=== PATIENT | female | born 1970 | race Caucasian/White ===

== ENCOUNTER → 2020-05-12 | Outpatient (CLI) | payer MEDICAID, OTHER, SELFPAY ==
[~2020-05-12] MED LIST: ELIQ5TAB PO; FERR325T3 PO; LASI20TA3 PO; VITA-158 PO
--- NOTE | 2020-07-04 13:39 | REP ---
LEFT LOWER EXTREMITY DOPPLER ULTRASOUND: HISTORY: Left lower extremity pain. TECHNIQUE: Real time, davis scale and color Doppler evaluation using linear high frequency transducer. FINDINGS: There is partial thrombus extending from the common femoral vein to the popliteal vein along with occlusive thrombus extending into the greater saphenous vein. IMPRESSION: Findings consistent with acute deep venous thrombosis. MTDD
== END ==
LOC: M RAD 12:36
PROVIDERS: ATTEND Physician Assistant Medical
DX: I82.412 Acute embolism and thrombosis of left femoral vein (principal); I82.433 Acute embolism and thrombosis of popliteal vein, bilateral

== ENCOUNTER → 2020-05-12 | Emergency (ER) | payer MEDICAID, OTHER, SELFPAY ==
[~2020-05-12] MED LIST changes: +APIXABAN 5 MG TAB (ELIQUIS) ONE
[2020-06-15 14:08] LABS: INR 1.07; PARTIAL THROMBOPLASTIN TIME 23.7 SECONDS (25.0-38.4); PROTHROMBIN TIME 14.1 SECONDS (11.8-14.0)
[2020-06-23 10:45] LABS: DRVV CONFIRM 39.8 SEC; DRVV SCREEN 46.7 SEC; LUPUS CONFIRM RATIO 1.1; NORMALIZED RATIO 1.09 (0.00-1.20); PTT LUPUS TYPE ANTICOAG SCREEN 1.2 (0-1.2)
[2020-07-22 06:51] LABS: CARDIOLIPIN IGG ANTIBODY SEE SEPARATE REPORT; CARDIOLIPIN IGM ANTIBODY SEE SEPARATE REPORT
[2020-07-22 06:52] LABS: ANTI THROMBIN 3 ANTIGEN IMMUNO See Separate Report % NORMAL; ANTI THROMBIN 3 FUNCT ACTIVITY See Separate Report % NORMAL; CARDIOLIPIN IGA ANTIBODY SEE SEPARATE REPORT; PROTEIN C FUNCTIONAL ACTIVITY SEE SEPARATE REPORT %; PROTEIN S FUNCTIONAL ACTIVITY SEE SEPARATE REPORT %
[2020-07-22 06:53] LABS: FACTOR II PROTHROMBIN GENE AN SEE SEPARATE REPORT; FACTOR V LEIDEN FOR MEDINET See Separate Report
== END | disposition home or self-care (01) ==
LOC: M ED 14:17
DX: I80.3 Phlebitis and thrombophlebitis of lower extremities, unspecified (principal); F17.210 Nicotine dependence, cigarettes, uncomplicated

== ENCOUNTER → 2020-07-24 | Outpatient (REF) | payer MEDICAID, OTHER ==
[~2020-07-24] MED LIST changes: -APIXABAN 5 MG TAB (ELIQUIS) ONE
[2020-07-24 13:03] LABS: BASO # 0.1 10^3/uL (0.0-0.2); EOS # 0.1 10^3/uL (0.0-0.5); EOS % 1.4 % (0.0-3.0); LYMPH # 1.6 10^3/uL (1.5-5.0); LYMPH % 32.9 % (24.0-44.0); MEAN CORPUSCULAR HEMOGLOBIN 16.6 pg (27.0-33.0); MEAN CORPUSCULAR HGB CONC 26.6 g/dl (32.0-36.5); MEAN CORPUSCULAR VOLUME 62.5 fl (80.0-96.0); MONO # 0.2 10^3/uL (0.0-0.8); MONO % 4.5 % (0.0-5.0); NEUTROPHILS # 2.9 10^3/uL (1.5-8.5); NEUTROPHILS % 59.8 % (36.0-66.0); PLATELET COUNT, AUTOMATED 160 10^3/uL (150-450); RED BLOOD COUNT 3.01 10^6/uL (4.00-5.40); WHITE BLOOD COUNT 4.9 10^3/uL (4.0-10.0)
[2020-07-24 13:33] LABS: ALBUMIN 3.4 GM/DL (3.2-5.2); ALT/SGPT 45 U/L (12-78); BILIRUBIN,TOTAL 0.3 MG/DL (0.2-1.0); BLOOD UREA NITROGEN 8 MG/DL (7-18); CALCIUM LEVEL 8.5 MG/DL (8.5-10.1); CARBON DIOXIDE LEVEL 26 MEQ/L (21-32); CHLORIDE LEVEL 106 MEQ/L (98-107); CHOLESTEROL LEVEL 101 MG/DL (<200); CHOLESTEROL RISK RATIO 3.607 (<5); CREATININE FOR GFR 0.77 MG/DL (0.55-1.30); FREE T4 1.12 NG/DL (0.76-1.46); GLOMERULAR FILTRATION RATE > 60.0 (>51); GLUCOSE, FASTING 88 MG/DL (70-100); HDL CHOLESTEROL 28 MG/DL (>40); LDL CHOLESTEROL 61 MG/DL (<100); NON-HDL-C 73 MG/DL; POTASSIUM SERUM 3.8 MEQ/L (3.5-5.1); SODIUM LEVEL 137 MEQ/L (136-145); TOTAL PROTEIN 7.3 GM/DL (6.4-8.2); TRIGLYCERIDES LEVEL 61 MG/DL (<150)
[2020-07-24 13:34] LABS: HEMATOCRIT 18.8 % (36.0-47.0)
== END ==
LOC: M LAB REF 12:24
PROVIDERS: ATTEND Physician Assistant
DX: Z72.0 Tobacco use (principal); E03.0 Congenital hypothyroidism with diffuse goiter; I82.402 Acute embolism and thrombosis of unspecified deep veins of left lower extremity; Z68.39 Body mass index [BMI] 39.0-39.9, adult; E66.09 Other obesity due to excess calories

== ENCOUNTER 2020-07-25 15:53 | Inpatient (IN) | payer MEDICAID, OTHER ==
[2020-07-25] VITALS (8 sets, daily range): BP systolic 149–165; BP diastolic 66–83
[~2020-07-25] VITALS: Ht 172.7 cm; Wt 104.3 kg
[~2020-07-25 15:53] MED LIST changes: -ELIQ5TAB PO; -FERR325T3 PO; -LASI20TA3 PO; -VITA-158 PO; +medroxyPROGESTERone 5MG TABLET PO SCH
[2020-07-25] MEDS ORDERED: ELIQ5TAB PO (16:13)
[2020-07-25 16:29] LABS: BASO % 0.4 % (0.0-1.0); EOS # 0.1 10^3/uL (0.0-0.5); EOS % 1.6 % (0.0-3.0); LYMPH # 1.5 10^3/uL (1.5-5.0); LYMPH % 30.5 % (24.0-44.0); MEAN CORPUSCULAR HEMOGLOBIN 16.5 pg (27.0-33.0); MEAN CORPUSCULAR HGB CONC 26.6 g/dl (32.0-36.5); MEAN CORPUSCULAR VOLUME 62.1 fl (80.0-96.0); MONO # 0.2 10^3/uL (0.0-0.8); MONO % 3.9 % (0.0-5.0); NEUTROPHILS # 3.1 10^3/uL (1.5-8.5); PLATELET COUNT, AUTOMATED 164 10^3/uL (150-450); RED BLOOD COUNT 2.85 10^6/uL (4.00-5.40); WHITE BLOOD COUNT 4.9 10^3/uL (4.0-10.0)
[2020-07-25 16:37] LABS: HEMATOCRIT 17.7 % (36.0-47.0); HEMOGLOBIN 4.7 g/dl (12.0-15.5)
[2020-07-25 16:42] LABS: INR 1.13; PROTHROMBIN TIME 14.8 SECONDS (12.5-14.3)
[2020-07-25 16:43] LABS: PARTIAL THROMBOPLASTIN TIME 27.2 SECONDS (24.2-38.5)
[2020-07-25 16:49] LABS: BLOOD UREA NITROGEN 9 MG/DL (7-18); CALCIUM LEVEL 8.2 MG/DL (8.5-10.1); CARBON DIOXIDE LEVEL 25 MEQ/L (21-32); CHLORIDE LEVEL 105 MEQ/L (98-107); CREATININE FOR GFR 0.81 MG/DL (0.55-1.30); GLOMERULAR FILTRATION RATE > 60.0 (>51); GLUCOSE, FASTING 97 MG/DL (70-100); POTASSIUM SERUM 3.3 MEQ/L (3.5-5.1); SODIUM LEVEL 138 MEQ/L (136-145)
--- NOTE | 2020-07-25 17:13 | HPEPDOC ---
[facility] Medical History & Physical Date of Admission Jul 25, 2020 Date of Service: Jul 25, 2020 Attending Physician: Cady Silver MD History and Physical CHIEF COMPLAINT: Abnormal labs HISTORY OF PRESENT ILLNESS: Patient is a 49-year-old female with past medical history of abnormal uterine bleeding on Eliquis, tobacco use, obesity, history of DVT on eliquis who presented to [facility] after being told by her physician that she had abnormal labs. The patient was diagnosed with a left lower extremity DVT at the end of April 2020 and started on Hailey Timothy twice a day. Her next menstrual cycle, the patient bled an excessive amount and it lasted for approximately - 11/07 weeks. She followed up with her primary care provider who continued with the Eliquis but at a decreased dose than before. This month when she had her menstrual cycle her period was very heavy and lasted approximately one week, but overall less heavy then prior menstrual cycle. She went in for labs family and was found to have abnormal labs so she was sent here for further evaluation. The patient states to have some increased shortness of breath but does not think it's far from her normal with her history of smoking. She also admits to intermittent cough which she labels as a smoker's cough. She denies chest pain, lightheadedness, dizziness, increased lethargy, rectal bleeding, nausea, vomiting, decreased appetite. She denies having history of anemia in the past but admits that there is a strong family history of thalassemia in both her sister and grandmother. In the emergency room H&H was 4.7/17.7, MCV was low in the 60s. Potassium was low at 3.3. Blood pressure was elevated with systolic 180s. On examination the patient had pale conjunctiva, +2 pitting edema in the bilateral lower extremitie s. Left lower extremity where prior DVT was diagnosed was slightly more swollen than the right. The case was discussed with Dr. Caraballo (gynecology on-call). Due to the patient not yet being menopausal, she states abnormal or heavy bleeding with menses can be completely normal. But if the patient is having continued bleeding after her menses with severe anemia, treating with progesterone or control pills could be an option. There is an increased risk of clots with both options presented, however. I presented her options to the patient and the patient would like to not treat with progesterone or control pills but only. The Hailey Timothy right now while receiving transfusions. She does not have an outpatient mate chief to follow with but would like to follow-up with Dr. Caraballo after discharge. The patient was ultimately admitted admitted under hospitalist services for acute blood loss anemia likely secondary to vaginal bleeding while on Eliquis. REVIEW OF SYSTEMS: CONSTITUTIONAL: Denies lack of energy, unexplained weight gain or weight loss, loss of appetite, fever, night sweats EYES: Denies eye drainage, eye pain, visual changes, dry/irritated eye EARS, NOSE, MOUTH, THROAT: Denies difficulty hearing, ringing in ears, mouth sores, loose teeth, sore throat, facial numbness or pain NECK: Denies swollen glands CARDIOVASCULAR: Denies irregular heartbeat, racing heart, chest pains, swelling of feet or legs, pain in legs with walking RESPIRATORY: Denies night sweats, wheezing, sputum production, oxygen at home, coughing up blood, cough lasting > 1 month GASTROINTESTINAL: Denies abdominal pain, constipation, bloody stool, diarrhea, heartburn, nausea, vomiting GENITOURINARY: Denies painful urination, bloody urine, frequent urination, urgency, leaking urine, impotence MUSCULOSKELETAL: Denies joint pain, muscle pain, leg swelling INTEGUMENTARY: Denies rash, itching, new skin lesion, change in existing skin lesion, hair loss or increase, breast changes. NEUROLOGICAL: Denies headaches, dizziness, difficulty walking, numbness or tingling PSYCHIATRIC: Denies depression, anxiety, recurrent bad thoughts, mood swings, hallucinations PAST MEDICAL HISTORY: 1. Tobacco use 2. Obesity 3. DVT LLE (diagnosed 04/2020) on Eliquis 4. Lower ext edema b/l 5. Abnormal vaginal bleeding on Eliquis PAST SURGICAL HISTORY: 1. pilodinal cyst removal 2. Ovarian cyst removal FAMILY HISTORY: Father: Healthy, alive Mother: Breast cancer, alive Siblings: sister, thalassemia Grandmother: thalassemia SOCIAL HISTORY: Smoker 2 packs per day for the past 30 years. Drinks alcohol socially, denies illicit drug use. Lives alone locally. Her primary care provider is Lissa Arana. She is a full code. ALLERGIES: Please see below. HOME MEDICATIONS: Please see below. PHYSICAL EXAMINATION: VS: Please see below CONSTITUTIONAL: No acute distress, resting comfortably, AAO x 3 EYES: PERRLA, EOM intact, pale conjunctiva HENT, MOUTH: Normocephalic, atraumatic, moist mucous membranes, NECK: SUPPLE, no JVD, no lymphadenopathy, no carotid bruit CV: Regular rate and rhythm, S1S2 normal, no murmurs/rubs/gallops RESPIRATORY: Clear to auscultation bilaterally, no rales/rhonchi/wheezes GI: BS positive in 4 quadrants, soft, nontender, nondistended, no rebound or guarding, no organomegaly : Deferred MUSCULOSKELETAL: Normal ROM. No cyanosis, clubbing, swelling, joint deformity, + 2 pitting lower extremity edema with L>R INTEGUMENTARY: Intact, no rashes, no lesions, no erythema NEUROLOGIC: Cranial Nerves II-XII are intact, no focal deficits PSYCHIATRIC: Mood and affect are normal LABORATORY DATA: Please see below IMAGING: None ASSESSMENT: 49-year-old female with past medical history of abnormal uterine bleeding on Eliquis, tobacco use, obesity, history of DVT on eliquis admitted for further treatment of acute blood loss anemia likely secondary to vaginal bleeding while on Eliquis. PLAN: Acute blood loss anemia likely 2/2 to vaginal bleeding while on Eliquis. Cannot also r/o chronic cause of underlying anemia. -H/H 4.7, MCV low (hypochromic, microcytic cause likely- iron deficiency, sideroblastic anemia, thalassemia) -F/u iron, TIBC, ferritin. -Patient would benefit from o/p w/u for thalassemia due to strong family history if anemia has been chronic longer than April 2020 -Discussed case with Dr. Caraballo (gynecology) who gave some options for bleeding including progesterone or control pills but risk for clots is present. Wi th already existing DVT, high risk. Discussed with patient who would like to hold off on adding these meds and only stop eliquis for now. Dr. White's recommended f/u with mate chief after d/c. -Transfusing 3 units PRBC today, f/u post transfusion H/H after 2nd unit and 3rd unit. Will give dose of lasix after 2nd unit. -Goal Hgb >8-9. Hypokalemia, acute -K 3.3 -Supplementing 40 mEq now -F/u daily labs HTN -BP in ER 160-180's systolic -No prior hx but patient is fluid overloaded with + 2-3 pitting edema in lower ext -Will give daily lasix dosing and may need to be discharged with it. LLE DVT -Smoker, no prior hx of DVT, unknown if other risk factors when diagnosed in 04/2020. -Stopping eliquis for now -Will need to f/u with PCP after discharge to discuss when/if to resume -Patient knows if off eliquis risk of clot formation or increasing size of existing clot exists Bilateral lower ext swelling -L>R with existing DVT; however, +2 pitting edema. -No incr JVD, shortness of breath, or abnormal cough. -Would recommend o/p echocardiogram to r/o possible RHF -Could be lymphedema also -Teds/scd only for Right lower ext due to dvt in left Tobacco use -nicotine patch DVT px. -SCD for right leg only. Avoiding AC due to vaginal bleeding DISPOSITION: Admitted as observation status. Plan is discharge home when medically improved. Will need Dr. White's office number to f/u after discharge. Vital Signs Vital Signs Date Time Temp Pulse Resp B/P (MAP) Pulse Ox O2 Delivery O2 Flow Rate FiO2 07/25/20 16:05 07/25/20 15:54 98.4 93 18 100 Room Air Laboratory Data Labs 24H Laboratory Tests 2 07/25/20 16:19: Immature Granulocyte % (Auto) 0.6, Neutrophils (%) (Auto) 63.0, Lymphocytes (%) (Auto) 30.5, Monocytes (%) (Auto) 3.9, Eosinophils (%) (Auto) 1.6, Basophils (%) (Auto) 0.4, Neutrophils # (Auto) 3.1, Lymphocytes # (Auto) 1.5, Monocytes # (Au to) 0.2, Eosinophils # (Auto) 0.1, Basophils # (Auto) 0.0, Nucleated Red Blood Cells % (auto) 0.0, Prothrombin Time 14.8H, Prothromb Time International Ratio 1.13, Activated Partial Thromboplast Time 27.2, Anion Gap 8, Glomerular Filtration Rate > 60.0, Calcium Level 8.2L CBC/BMP Laboratory Tests 07/25/20 16:19 Home Medications Scheduled Apixaban (Eliquis) 5 Mg Tablet, 5 MG PO BID Allergies Coded Allergies: No Known Allergies (Verified , 01/23/10) A-FIB/CHADSVASC A-FIB History Current/History of A-Fib/PAF?: No Current PO Anticoag Therapy: No Age/Risk Factor Scoring CHADSVASC: CHADSVASC Response (Comments) Value Age Risk Factor Age < 65 years old 0 Gender Risk Factor Female 1 Hx of CHF No 0 Hx of HTN Yes 1 Hx of Stroke/TIA/or VTE No 0 Hx of Diabetes No 0 Hx of Vascular Disease No 0 Total 2 Treatment Treatment ordered: NONE Reason Anticoagulant not given: Current bleeding Cady Silver MD Jul 25, 2020 17:13
[2020-07-25] MEDS ORDERED: ACETAMINOPHEN TAB 650MG DOSE (2X325MG) PO PRN (17:15)
[2020-07-25] MEDS ORDERED: FUROSEMIDE 40MG/4ML VIAL (J1940) IV ONE (18:30)
[2020-07-25 18:41] LABS: FERRITIN 3 NG/ML (8-252); IRON (FE) 11 UG/DL (50-170); PERCENT SATURATION 1.8 % (13.2-45.0); TOTAL IRON BINDING CAPACITY 619 UG/DL (250-450)
[2020-07-25] MEDS ORDERED: POTASSIUM CHLORIDE 10 MEQ SR TABLET PO ONE (19:00)
[2020-07-26] VITALS (12 sets, daily range): BP systolic 133–166; BP diastolic 64–77
[2020-07-26 00:44] LABS: HEMATOCRIT 25.1 % (36.0-47.0); MEAN CORPUSCULAR HEMOGLOBIN 19.3 pg (27.0-33.0); MEAN CORPUSCULAR HGB CONC 28.7 g/dl (32.0-36.5); MEAN CORPUSCULAR VOLUME 67.3 fl (80.0-96.0); PLATELET COUNT, AUTOMATED 169 10^3/uL (150-450); RED BLOOD COUNT 3.73 10^6/uL (4.00-5.40)
[2020-07-26 00:47] LABS: HEMOGLOBIN 7.2 g/dl (12.0-15.5)
[2020-07-26 03:55] LABS: HEMATOCRIT 26.7 % (36.0-47.0); HEMOGLOBIN 7.8 g/dl (12.0-15.5); MEAN CORPUSCULAR HEMOGLOBIN 19.7 pg (27.0-33.0); MEAN CORPUSCULAR HGB CONC 29.2 g/dl (32.0-36.5); MEAN CORPUSCULAR VOLUME 67.4 fl (80.0-96.0); PLATELET COUNT, AUTOMATED 160 10^3/uL (150-450); RED BLOOD COUNT 3.96 10^6/uL (4.00-5.40); WHITE BLOOD COUNT 6.3 10^3/uL (4.0-10.0)
[2020-07-26 05:46] LABS: HEMATOCRIT 25.6 % (36.0-47.0); HEMOGLOBIN 7.4 g/dl (12.0-15.5); MEAN CORPUSCULAR HEMOGLOBIN 19.5 pg (27.0-33.0); MEAN CORPUSCULAR HGB CONC 28.9 g/dl (32.0-36.5); MEAN CORPUSCULAR VOLUME 67.5 fl (80.0-96.0); PLATELET COUNT, AUTOMATED 154 10^3/uL (150-450); RED BLOOD COUNT 3.79 10^6/uL (4.00-5.40); WHITE BLOOD COUNT 5.8 10^3/uL (4.0-10.0)
[2020-07-26 06:11] LABS: ALBUMIN 3.4 GM/DL (3.2-5.2); ALT/SGPT 48 U/L (12-78); BILIRUBIN,TOTAL 1.3 MG/DL (0.2-1.0); BLOOD UREA NITROGEN 6 MG/DL (7-18); CALCIUM LEVEL 8.4 MG/DL (8.5-10.1); CARBON DIOXIDE LEVEL 26 MEQ/L (21-32); CHLORIDE LEVEL 106 MEQ/L (98-107); CREATININE FOR GFR 0.74 MG/DL (0.55-1.30); GLOMERULAR FILTRATION RATE > 60.0 (>51); GLUCOSE, FASTING 90 MG/DL (70-100); POTASSIUM SERUM 3.6 MEQ/L (3.5-5.1); SODIUM LEVEL 138 MEQ/L (136-145); TOTAL PROTEIN 7.4 GM/DL (6.4-8.2)
[2020-07-26] MEDS ORDERED: MIRALAX *UNIT DOSE* 17GM PACKET PO PRN (08:45)
[2020-07-26] MEDS ORDERED: NICOTINE 14 MG/24 HR TRANSDERMAL TD SCH (09:00)
[2020-07-26] MEDS ORDERED: FUROSEMIDE 40MG/4ML VIAL (J1940) IV SCH (09:00)
[2020-07-26] MEDS ORDERED: ASCORBIC ACID 500 MG TAB PO SCH (09:00)
[2020-07-26] MEDS ORDERED: FERROUS SULFATE 325MG TAB PO SCH (09:00)
[2020-07-26 13:33] LABS: HEMOGLOBIN 9.5 g/dl (12.0-15.5)
[2020-07-26] MEDS ORDERED: LASI20TA3 PO (17:37)
[2020-07-26] MEDS ORDERED: VITA-158 PO (17:47)
[2020-07-26] MEDS ORDERED: FERR325T3 PO (17:47)
--- NOTE | 2020-07-26 18:00 | DS.PDOC ---
Discharge Summary General Date of Admission Jul 25, 2020 at 17:08 Date of Discharge 07/26/20 Attending Physician: Cady Silver MD Discharge Summary HISTORY OF PRESENT ILLNESS: Patient is a 49-year-old female with past medical history of abnormal uterine bleeding on Eliquis, tobacco use, obesity, history of DVT on eliquis who presented to [facility] after being told by her physician that she had abnormal labs. The patient was diagnosed with a left lower extremity DVT at the end of April 2020 and started on Hailey Timothy twice a day. Her next menstrual cycle, the patient bled an excessive amount and it lasted for approximately - 11/07 weeks. She followed up with her primary care provider who continued with the Eliquis but at a decreased dose than before. This month when she had her menstrual cycle her period was very heavy and lasted approximately one week, but overall less heavy then prior menstrual cycle. She went in for labs family and was found to have abnormal labs so she was sent here for further evaluation. The patient states to have some increased shortness of breath but does not think it's far from her normal with her history of smoking. She also admits to intermittent cough which she labels as a smoker's cough. She denies chest pain, lightheadedness, dizziness, increased lethargy, rectal bleeding, nausea, vomiting, decreased appetite. She denies having history of anemia in the past but admits that there is a strong family history of thalassemia in both her sister and grandmother. In the emergency room H&H was 4.7/17.7, MCV was low in the 60s. Potassium was low at 3.3. Blood pressure was elevated with systolic 180s. On examination the patient had pale conjunctiva, +2 pitting edema in the bilateral lower extremities. Left lower extremity where prior DVT was diagnosed was slightly more swollen than the right. The case was discussed with Dr. Caraballo (gynecology on-call). Due to the patient not yet being menopausal, she states abnormal or heavy bleeding with menses can be completely normal. But if the patient is having continued bleeding after her menses with severe anemia, treating with progesterone or control pills could be an option. There is an increased risk of clots with both options presented, however. I presented her options to the patient and the patient would like to not treat with progesterone or control pills. She does not have an outpatient [employer] special [employer] to follow with but would like to follow-up with Dr. Caraballo after discharge. The patient was ultimately admitted admitted under hospitalist services for acute blood loss anemia likely secondary to vaginal bleeding while on Eliquis. HOSPITAL COURSE: Acute on chronic blood loss anemia was found to be likely 2/2 to severe iron deficiency anemia, vaginal bleeding while on Eliquis. Cannot also r/o chronic cause of underlying anemia (i.e. thalassemia). H/H was 4.7/17 on admission but s/p 4 units PRBC --> 9.5/32. Iron was found to be low at 11, TIBC high. Discussed case with Dr. Caraballo (gynecology) who gave some options for bleeding including progesterone or control pills but risk for clots is present. With already existing DVT, she is high risk. We addressed this again with patient who would like to hold off on adding progesterone or control pills at discharge and only stop eliquis for now. She was started on ferrous sulfate BID, vitamin C BID. Would benefit from iron infusions as o/p (i.e. venofer). Hypokalemia resolved with supplementation. She had persistently high BP, likely this is her at baseline. She received 40 mg IV lasix after the 3rd unit of blood which helped with gentle diuresis. She will go home with oral lasix low dose to help with both lower ext edema and HTN. With hx of DVT, patient will need close f/u with PCP to discuss when/if she can resume her anticoagulation. If she cannot, what are her other options that need to be discussed. I am recommending an o/p echocardiogram to further assess lower ext edema. On 07/26/20 patient was discharged home in improved condition. She is advised to take all discharge instructions to follow up appointment. At discharge, patient admits to feeling like she has "more energy". She didn't realize that her feeling run down was her low blood levels-she attributed it to her stress at home. She denies chest pain,n/v/d, fevers, chills, lightheadedness, dizziness. REVIEW OF SYSTEMS: Neg except mentioned above PAST MEDICAL HISTORY: 1. Tobacco use 2. Obesity 3. DVT LLE (diagnosed 04/2020) on Eliquis 4. Lower ext edema b/l 5. Abnormal vaginal bleeding on Eliquis PAST SURGICAL HISTORY: 1. pilodinal cyst removal 2. Ovarian cyst removal FAMILY HISTORY: Father: Healthy, alive Mother: Breast cancer, alive Siblings: sister, thalassemia Grandmother: thalassemia SOCIAL HISTORY: Smoker 2 packs per day for the past 30 years. Drinks alcohol socially, denies illicit drug use. Lives alone locally. Her primary care provider is Lissa Arana. She is a full code. ALLERGIES: Please see below. HOME MEDICATIONS: Please see below. PHYSICAL EXAMINATION: VS: Please see below CONSTITUTIONAL: No acute distress, resting comfortably, AAO x 3 EYES: PERRLA, EOM intact, pale conjunctiva HENT, MOUTH: Normocephalic, atraumatic, moist mucous membranes, NECK: SUPPLE, no JVD, no lymphadenopathy, no carotid bruit CV: Regular rate and rhythm, S1S2 normal, no murmurs/rubs/gallops RESPIRATORY: Clear to auscultation bilaterally, no rales/rhonchi/wheezes GI: BS positive in 4 quadrants, soft, nontender, nondistended, no rebound or guarding, no organomegaly : Deferred MUSCULOSKELETAL: Normal ROM. No cyanosis, clubbing, swelling, joint deformity, + 2 pitting lower extremity edema with L>R INTEGUMENTARY: Intact, no rashes, no lesions, no erythema NEUROLOGIC: Cranial Nerves II-XII are intact, no focal deficits PSYCHIATRIC: Mood and affect are normal LABORATORY DATA: Please see below IMAGING: None ASSESSMENT: 49-year-old female with past medical history of abnormal uterine bleeding on Eliquis, tobacco use, obesity, history of DVT on eliquis admitted for further treatment of acute blood loss anemia likely secondary to severe iron deficiency from vaginal bleeding while on Eliquis. PLAN: Acute on chronic blood loss anemia likely 2/2 to severe iron deficiency anemia, vaginal bleeding while on Eliquis. Cannot also r/o chronic cause of underlying anemia (i.e. thalassemia). -H/H 4.7/17 on admission. S/p 4 units PRBC --> 9.5/32. -Iron low at 11, TIBC high -Patient would benefit from o/p w/u for thalassemia due to strong family history if anemia has been chronic longer than April 2020 -Discussed case with Dr. Caraballo (gynecology) who gave some options for bleeding including progesterone or control pills but risk for clots is present. With already existing DVT, high risk. Discussed with patient who would like to hold off on adding these meds and only stop eliquis for now. Dr. White's recommended f/u with [employer] special education teacher after d/c. Patient given o/p clinic number to call and set up appointment. -If bleeding continues, patient is advised to seek medical attention to address -Starting ferrous sulfate BID, vitamin C BID. Would benefit from iron infusions as o/p (i.e. venofer) Hypokalemia, acute- resolve HTN -BP 140-160's systolic -S/p 40 mg IV lasix after two units PRBC -Likely unknown baseline HTN -Discharged on low dose lasix 20 mg PO daily LLE DVT -Smoker, obesity, sedentary, but no prior hx of DVT, unknown if other risk factors when diagnosed in 04/2020. -Stopping eliquis for now per patient's request -Will need to f/u with PCP after discharge to discuss when/if to resume -Patient knows if off eliquis risk of clot formation or increasing size of existing clot exists Bilateral lower ext swelling -L>R with existing DVT; however, +2 pitting edema. -No incr JVD, shortness of breath, or abnormal cough. -Would recommend o/p echocardiogram to r/o possible RHF -Could be lymphedema also -C/w lasix daily Tobacco use -Smoking cessation counseling given at bedside Obesity -BMI 35 -Complicates care -Lifestyle changes encouraged and patient to discuss with PCP further DISPOSITION: Discharged today to home. Advised to f/u with both PCP and Dr. Caraballo (gynecology) after weekend. TIME SPENT ON DISCHARGE: Greater than 30 minutes. Vital Signs/I&Os Vital Signs Date Time Temp Pulse Resp B/P (MAP) Pulse Ox O2 Delivery O2 Flow Rate FiO2 07/26/20 13:00 96.8 77 20 140/70 98 Room Air I&O- Last 24 Hours up to 6 AM 07/26/20 06:00 Intake Total 1800 ml Output Total 3425 ml Balance -1625 ml Laboratory Data Labs 24H Laboratory Tests 2 07/26/20 00:24: Nucleated Red Blood Cells % (auto) 0.0 07/26/20 03:45: Nucleated Red Blood Cells % (auto) 0.3H 07/26/20 05:14: Nucleated Red Blood Cells % (auto) 0.3H, Anion Gap 6L, Glomerular Filtration Rate > 60.0, Calcium Level 8.4L, Total Bilirubin 1.3#H, Aspartate Amino Transf (AST/SGOT) 33, Alanine Aminotransferase (ALT/SGPT) 48, Alkaline Phosphatase 112, Total Protein 7.4, Albumin 3.4, Albumin/Globulin Ratio 0.9L CBC/BMP Laboratory Tests 07/26/20 00:24 07/26/20 03:45 07/26/20 05:14 07/26/20 13:12 Discharge Medications Scheduled Furosemide (Lasix) 20 Mg Tablet, 20 MG PO DAILY Allergies Coded Allergies: No Known Allergies (Verified , 01/23/10) Cady Silver MD Jul 26, 2020 18:00
== END 2020-07-26 14:00 | disposition home or self-care (01) | DRG 532 ==
LOC: M ED 15:53 → M ED INP 17:08 → ENRESERV 17:22 → M MSPAV 18:05
PROVIDERS: ADMIT Internal Medicine; ATTEND Internal Medicine
PROC: 30233N1 Transfusion of Nonautologous Red Blood Cells into Peripheral Vein, Percutaneous Approach (ICD-10-PCS; principal; 2020-07-25)
DX: N93.9 Abnormal uterine and vaginal bleeding, unspecified (principal); D62 Acute posthemorrhagic anemia; I10 Essential (primary) hypertension; Z79.01 Long term (current) use of anticoagulants; F17.200 Nicotine dependence, unspecified, uncomplicated; E66.9 Obesity, unspecified; E87.6 Hypokalemia; Z68.35 Body mass index [BMI] 35.0-35.9, adult

== ENCOUNTER → 2020-08-14 | Outpatient (REF) | payer OTHER ==
[~2020-08-14] MED LIST changes: +ELIQ5TAB PO; +FERR325T3 PO; +LASI20TA3 PO; +VITA-158 PO; -medroxyPROGESTERone 5MG TABLET PO SCH
[2020-08-14 17:24] LABS: BASO % 0.3 % (0.0-1.0); EOS # 0.1 10^3/uL (0.0-0.5); EOS % 1.6 % (0.0-3.0); HEMATOCRIT 40.1 % (36.0-47.0); HEMOGLOBIN 11.4 g/dl (12.0-15.5); LYMPH # 1.6 10^3/uL (1.5-5.0); LYMPH % 25.1 % (24.0-44.0); MEAN CORPUSCULAR HEMOGLOBIN 21.2 pg (27.0-33.0); MEAN CORPUSCULAR HGB CONC 28.4 g/dl (32.0-36.5); MEAN CORPUSCULAR VOLUME 74.4 fl (80.0-96.0); MONO # 0.3 10^3/uL (0.0-0.8); MONO % 4.8 % (0.0-5.0); NEUTROPHILS # 4.4 10^3/uL (1.5-8.5); NEUTROPHILS % 67.9 % (36.0-66.0); PLATELET COUNT, AUTOMATED 336 10^3/uL (150-450); RED BLOOD COUNT 5.39 10^6/uL (4.00-5.40); WHITE BLOOD COUNT 6.5 10^3/uL (4.0-10.0)
[2020-08-14 17:36] LABS: ALBUMIN 3.9 GM/DL (3.2-5.2); ALT/SGPT 73 U/L (12-78); BILIRUBIN,TOTAL 0.6 MG/DL (0.2-1.0); BLOOD UREA NITROGEN 12 MG/DL (7-18); CALCIUM LEVEL 9.2 MG/DL (8.5-10.1); CARBON DIOXIDE LEVEL 30 MEQ/L (21-32); CHLORIDE LEVEL 101 MEQ/L (98-107); GLOMERULAR FILTRATION RATE > 60.0 (>51); GLUCOSE, FASTING 81 MG/DL (70-100); POTASSIUM SERUM 3.4 MEQ/L (3.5-5.1); SODIUM LEVEL 139 MEQ/L (136-145); TOTAL PROTEIN 8.2 GM/DL (6.4-8.2)
== END ==
LOC: M LAB REF 16:32
PROVIDERS: ATTEND Physician Assistant
DX: D50.0 Iron deficiency anemia secondary to blood loss (chronic) (principal)

== ENCOUNTER → 2020-08-28 | Outpatient (REF) | payer OTHER, MEDICAID ==
[2020-08-28 16:44] LABS: BLOOD UREA NITROGEN 11 MG/DL (7-18); CALCIUM LEVEL 8.7 MG/DL (8.5-10.1); CARBON DIOXIDE LEVEL 32 MEQ/L (21-32); CHLORIDE LEVEL 103 MEQ/L (98-107); CREATININE FOR GFR 0.67 MG/DL (0.55-1.30); GLOMERULAR FILTRATION RATE > 60.0 (>51); GLUCOSE, FASTING 87 MG/DL (70-100); POTASSIUM SERUM 3.3 MEQ/L (3.5-5.1); SODIUM LEVEL 139 MEQ/L (136-145)
[2020-08-28 16:49] LABS: BASO # 0.1 10^3/uL (0.0-0.2); EOS # 0.1 10^3/uL (0.0-0.5); EOS % 2.1 % (0.0-3.0); HEMATOCRIT 40.6 % (36.0-47.0); HEMOGLOBIN 12.1 g/dl (12.0-15.5); LYMPH # 1.5 10^3/uL (1.5-5.0); LYMPH % 23.8 % (24.0-44.0); MEAN CORPUSCULAR HGB CONC 29.8 g/dl (32.0-36.5); MEAN CORPUSCULAR VOLUME 77.2 fl (80.0-96.0); MONO # 0.3 10^3/uL (0.0-0.8); MONO % 4.6 % (0.0-5.0); NEUTROPHILS # 4.3 10^3/uL (1.5-8.5); NEUTROPHILS % 68.3 % (36.0-66.0); PLATELET COUNT, AUTOMATED 242 10^3/uL (150-450); RED BLOOD COUNT 5.26 10^6/uL (4.00-5.40); WHITE BLOOD COUNT 6.3 10^3/uL (4.0-10.0)
== END ==
LOC: M LAB REF 16:23
PROVIDERS: ATTEND Physician Assistant
DX: D50.0 Iron deficiency anemia secondary to blood loss (chronic) (principal); R03.0 Elevated blood-pressure reading, without diagnosis of hypertension

== ENCOUNTER → 2020-10-03 | Outpatient (REF) | payer OTHER, MEDICAID ==
[2020-10-03 16:44] LABS: BLOOD UREA NITROGEN 11 MG/DL (7-18); CALCIUM LEVEL 8.3 MG/DL (8.5-10.1); CARBON DIOXIDE LEVEL 30 MEQ/L (21-32); CHLORIDE LEVEL 107 MEQ/L (98-107); CREATININE FOR GFR 0.69 MG/DL (0.55-1.30); GLOMERULAR FILTRATION RATE > 60.0 (>51); GLUCOSE, FASTING 81 MG/DL (70-100); SODIUM LEVEL 141 MEQ/L (136-145)
== END ==
LOC: M LAB REF 15:39
PROVIDERS: ATTEND Physician Assistant
DX: I10 Essential (primary) hypertension (principal)

== ENCOUNTER → 2020-11-11 | Outpatient (REF) | payer OTHER, MEDICAID ==
[2020-11-11 17:13] LABS: ALBUMIN 3.9 GM/DL (3.2-5.2); ALT/SGPT 48 U/L (12-78); BILIRUBIN,TOTAL 0.4 MG/DL (0.2-1.0); BLOOD UREA NITROGEN 9 MG/DL (7-18); CALCIUM LEVEL 9.3 MG/DL (8.5-10.1); CARBON DIOXIDE LEVEL 27 MEQ/L (21-32); CHLORIDE LEVEL 101 MEQ/L (98-107); CHOLESTEROL LEVEL 193 MG/DL (<200); CREATININE FOR GFR 0.65 MG/DL (0.55-1.30); GLOMERULAR FILTRATION RATE > 60.0 (>51); GLUCOSE, FASTING 88 MG/DL (70-100); HDL CHOLESTEROL 48 MG/DL (>40); LDL CHOLESTEROL 128 MG/DL (<100); NON-HDL-C 145 MG/DL; POTASSIUM SERUM 4.9 MEQ/L (3.5-5.1); SODIUM LEVEL 137 MEQ/L (136-145); TOTAL PROTEIN 7.9 GM/DL (6.4-8.2); TRIGLYCERIDES LEVEL 83 MG/DL (<150)
== END ==
LOC: M LAB REF 15:51
PROVIDERS: ATTEND Physician Assistant
DX: I10 Essential (primary) hypertension (principal); D64.9 Anemia, unspecified; E55.9 Vitamin D deficiency, unspecified

== ENCOUNTER → 2020-11-26 | Outpatient (REF) | payer OTHER, MEDICAID ==
[2020-11-26 16:31] LABS: BASO # 0.1 10^3/uL (0.0-0.2); BASO % 0.6 % (0.0-1.0); EOS # 0.1 10^3/uL (0.0-0.5); EOS % 1.1 % (0.0-3.0); HEMATOCRIT 40.7 % (36.0-47.0); HEMOGLOBIN 13.1 g/dl (12.0-15.5); LYMPH # 1.6 10^3/uL (1.5-5.0); MEAN CORPUSCULAR HEMOGLOBIN 26.5 pg (27.0-33.0); MEAN CORPUSCULAR HGB CONC 32.2 g/dl (32.0-36.5); MEAN CORPUSCULAR VOLUME 82.2 fl (80.0-96.0); MONO # 0.3 10^3/uL (0.0-0.8); NEUTROPHILS # 6.2 10^3/uL (1.5-8.5); NEUTROPHILS % 75.1 % (36.0-66.0); PLATELET COUNT, AUTOMATED 338 10^3/uL (150-450); RED BLOOD COUNT 4.95 10^6/uL (4.00-5.40); WHITE BLOOD COUNT 8.3 10^3/uL (4.0-10.0)
[2020-11-26 16:33] LABS: PERCENT SATURATION 12.4 % (13.2-45.0)
== END ==
LOC: M LAB REF 15:59
PROVIDERS: ATTEND Physician Assistant
DX: D50.9 Iron deficiency anemia, unspecified (principal)

== ENCOUNTER → 2021-03-12 | Outpatient (REF) | payer OTHER, MEDICAID ==
[2021-03-12 17:21] LABS: BLOOD UREA NITROGEN 13 MG/DL (7-18); CARBON DIOXIDE LEVEL 27 MEQ/L (21-32); CHLORIDE LEVEL 103 MEQ/L (98-107); CHOLESTEROL LEVEL 197 MG/DL (<200); CHOLESTEROL RISK RATIO 3.517 (<5); CREATININE FOR GFR 0.75 MG/DL (0.55-1.30); FERRITIN 24 NG/ML (8-252); GLOMERULAR FILTRATION RATE > 60.0 (>51); GLUCOSE, FASTING 78 MG/DL (70-100); HDL CHOLESTEROL 56 MG/DL (>40); IRON (FE) 101 UG/DL (50-170); LDL CHOLESTEROL 125 MG/DL (<100); NON-HDL-C 141 MG/DL; PERCENT SATURATION 21.2 % (13.2-45.0); POTASSIUM SERUM 4.4 MEQ/L (3.5-5.1); SODIUM LEVEL 138 MEQ/L (136-145); TOTAL IRON BINDING CAPACITY 476 UG/DL (250-450); TRIGLYCERIDES LEVEL 78 MG/DL (<150)
[2021-03-12 17:30] LABS: TOTAL 25(OH) VITAMIN D 30.9 NG/ML (30.0-100.0)
== END ==
LOC: M LAB REF 15:46
PROVIDERS: ATTEND Physician Assistant
DX: D64.9 Anemia, unspecified (principal); I10 Essential (primary) hypertension; E55.9 Vitamin D deficiency, unspecified; E78.5 Hyperlipidemia, unspecified

== ENCOUNTER → 2023-01-31 | Outpatient (REF) | payer OTHER, MEDICAID ==
[2023-01-31 17:57] LABS: HEMATOCRIT 42.1 % (36.0-47.0); HEMOGLOBIN 14.1 g/dl (12.0-15.5); MEAN CORPUSCULAR HEMOGLOBIN 29.3 pg (27.0-33.0); MEAN CORPUSCULAR HGB CONC 33.5 g/dl (32.0-36.5); MEAN CORPUSCULAR VOLUME 87.3 fl (80.0-96.0); PLATELET COUNT, AUTOMATED 283 10^3/uL (150-450); RED BLOOD COUNT 4.82 10^6/uL (4.00-5.40); WHITE BLOOD COUNT 6.6 10^3/uL (4.0-10.0)
[2023-01-31 18:11] LABS: ALBUMIN 3.4 G/DL (3.2-5.2); ALKALINE PHOSPHATASE 87 U/L (46-116); ALT/SGPT 29 U/L (7.0-40); AST/SGOT 22 U/L (<34); BILIRUBIN,TOTAL 0.3 MG/DL (0.3-1.2); BLOOD UREA NITROGEN 13 MG/DL (9-23); CALCIUM LEVEL 8.2 MG/DL (8.5-10.1); CARBON DIOXIDE LEVEL 26 MMOL/L (20-31); CHLORIDE LEVEL 104 MMOL/L (98-107); CHOLESTEROL LEVEL 178 MG/DL (<200); CHOLESTEROL RISK RATIO 3.08 (<5); CREATININE FOR GFR 0.66 MG/DL (0.55-1.30); GLOMERULAR FILTRATION RATE > 60.0 (>51); GLUCOSE, FASTING 69 MG/DL (60-100); HDL CHOLESTEROL 57.7 MG/DL (>40); LDL CHOLESTEROL 102.9 MG/DL (<100); NON-HDL-C 120.3 MG/DL; POTASSIUM SERUM 4.1 MMOL/L (3.5-5.1); SODIUM LEVEL 137 MMOL/L (136-145); TOTAL PROTEIN 7.1 G/DL (5.7-8.2); TRIGLYCERIDES LEVEL 87 MG/DL (<150)
[2023-01-31 18:15] LABS: TOTAL 25(OH) VITAMIN D 14.4 NG/ML (20.0-100.0)
== END ==
LOC: M LAB REF 16:22
PROVIDERS: ATTEND Physician Assistant
DX: I10 Essential (primary) hypertension (principal); R60.0 Localized edema; Z86.2 Personal history of diseases of the blood and blood-forming organs and certain disorders involving the immune mechanism; E55.9 Vitamin D deficiency, unspecified

== ENCOUNTER → 2023-08-18 | Outpatient (REF) | payer OTHER, MEDICAID ==
[2023-08-18 17:32] LABS: BLOOD UREA NITROGEN 10 MG/DL (9-23); CALCIUM LEVEL 8.6 MG/DL (8.5-10.1); CARBON DIOXIDE LEVEL 29 MMOL/L (20-31); CHLORIDE LEVEL 105 MMOL/L (98-107); CREATININE FOR GFR 0.66 MG/DL (0.55-1.30); GLOMERULAR FILTRATION RATE > 60.0 (>51); GLUCOSE, FASTING 103 MG/DL (60-100); POTASSIUM SERUM 4.3 MMOL/L (3.5-5.1); SODIUM LEVEL 139 MMOL/L (136-145)
[2023-08-18 17:37] LABS: TOTAL 25(OH) VITAMIN D 34.8 NG/ML (20.0-100.0)
== END ==
LOC: M LAB REF 16:15
PROVIDERS: ATTEND Physician Assistant
DX: E55.9 Vitamin D deficiency, unspecified (principal); I10 Essential (primary) hypertension